=== PATIENT | male | born 1965 | race Caucasian/White ===

== ENCOUNTER 2021-03-04 10:17 | Emergency (ER) | payer BC, SELFPAY ==
--- NOTE | ~2021-03-04 | XR_ITS ---
EXAMINATION: XR hand RT 2V INDICATION: Right hand pain TECHNIQUE: Two views of the right hand are obtained. COMPARISON: None available FINDINGS: Bone alignment is normal. There is no fracture. There is soft tissue swelling of the second finger. No radiopaque foreign body is identified. 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 IMPRESSION: 1. Soft tissue swelling of the second finger without acute osseous abnormality or radiopaque foreign body identified. Reviewed, dictated and finalized at location A.
[2021-03-04 10:29] VITALS: BP 138/73; PULSE 63; RESP 16; TEMP 36.2; O2SAT 98
--- NOTE | 2021-03-04 11:15 | ED.SKABFB ---
HPI - Skin/Abscess/Foreign Bdy General Chief complaint: Skin/Abscess/Foreign Body Stated complaint: Splinter in right Hand Source: patient, RN notes reviewed and old records reviewed Mode of arrival: ambulatory Limitations: no limitations History of Present Illness HPI narrative: 55 year old male who presents to [facility] care with complaints of splinter in his right hand myrick center aspect towards thumb region since evening.Patient states that he was cleaning out stalls of horse barn and piece of wood went into his right hand and he pulled some of it out but thinks that there is still something in his hand. He states that his right myrick hand towards his thumb is painful and swollen and he states some purulent drainage came out of it today. He reports that his tetanus shot is up to date. MD complaint: other (splinter right myrick aspect ) Onset (ago): day(s) (3) Related Data Allergies Allergy/AdvReac Type Severity Reaction Status Date / Time No Known Allergies Allergy Unverified 09/13/17 10:10 Review of Systems Review of Systems: CONSTITUTIONAL: Denies fever, chills, or sweats. EYES: Denies visual changes, redness, or discharge. ENT: Denies rhinorrhea, congestion, sore throat, or otalgia. CARDIOVASCULAR: Denies chest pain, palpitations, or edema. RESPIRATORY: Denies cough or dyspnea. GASTROINTESTINAL: Denies abdominal pain, nausea, vomiting, or diarrhea. GENITOURINARY: Denies dysuria or hematuria. SKIN: Pain to myrick aspect of right hand towards thumb with some redness and swelling. MUSCULOSKELETAL: Denies back pain, joint pain, or myalgia. NEUROLOGIC: Denies headache, numbness, or weakness. PSYCHIATRIC: Denies anxiety or depression. All systems reviewed & are unremarkable except as noted in HPI and below PMFSH Past Medical History Medical History (Updated 03/05/21 @ 00:03 by Rambo Smith) No pertinent past medical history Surgical History Surgical History (Updated 03/04/21 @ 11:35 by Doimnique Jang NP) No pertinent past surgical history Family History Family History (Updated 03/05/21 @ 20:53 by Dominique Jang NP) Other No significant family history Social History Social History (Updated 03/05/21 @ 21:15 by Dominique L. Laine, SET UP INSPECTOR) Smoking packs per day: 1 Smoking cigarettes per day: 20.0 Smoking status: Current every day smoker Tobacco type: cigarettes Alcohol intake: current Alcohol use details: social Substance use: never Living arrangements: with family Gender identity (if verbalized by the patient): Male Comments At time of signature, agree with nursing past medical, surgical, social and family history. There is no relevant family history pertinent to the presenting complaint Exam Narrative: GENERAL: Well-appearing, well-nourished, and in no acute distress. HEAD: Normocephalic, atraumatic. EYES: PERRLA and EOMI. ENT: Nares clear, no rhinorrhea or epistaxis. Mucous membranes moist.ears normal and throat normal NECK: Supple. no lymphadenopathy CHEST: Clear to auscultation. No respiratory distress.SAO2 98% on room air HEART: Regular rate and rhythm. No murmur heard. Normal peripheral pulses. ABDOMEN: Soft, nontender, nondistended, normal active bowel sounds. EXTREMITIES: Normal range of motion. No edema except to myrick aspect of right hand. SKIN: Warm, dry, no rash.Red swollen tissue area to the myrick aspect of patient's right hand towards thumb which is painful to palpation, small red puncture noted with no drainage present at this time but patient reports that he noted some purulent drainage earlier today, he feels like a piece of splinter remains in hand. NEURO: No focal deficits. Alert and oriented x3. Course Vital Signs Vital signs: Vital Signs Temperature 36.2 C L 03/04/21 10:29 Pulse Rate 63 03/04/21 10:29 Respiratory Rate 16 03/04/21 10:29 Blood Pressure 138/73 03/04/21 10:29 Pulse Oximetry 98 03/04/21 10:29 Temperature 36
--- NOTE | 2021-03-04 11:21 | PC.NURSE ---
suture set up at bedside 1100
== END 2021-03-04 12:10 | disposition home or self-care (01) ==
PROVIDERS: Emergency Provider Registered Nurse; PCP Internal Medicine
DX: S61.441A Puncture wound with foreign body of right hand, initial encounter (principal); W45.8XXA Other foreign body or object entering through skin, initial encounter; F17.210 Nicotine dependence, cigarettes, uncomplicated
CPT/HCPCS: 10120; 73120; 99213; G0463

== ENCOUNTER 2021-11-21 21:39 | Emergency (ER) | payer BC, SELFPAY ==
--- NOTE | ~2021-11-21 | XR_ITS ---
EXAMINATION: XR chest 1V portable Exam Date/Time: 11/21/2021 22:00 CDT CLINICAL HISTORY: stroke protocol Comparison: None available. RESULT: Lines, tubes, and devices: None. Lungs and pleura: Low lung volumes. Diffuse reticular pattern. Cardiomediastinal silhouette: Stable cardiomediastinal silhouette. Other: No acute osseous or upper abdominal finding. IMPRESSION: Bronchovascular crowding vs mild interstitial edema. Reviewed, dictated and finalized at location K.
--- NOTE | ~2021-11-21 | CT_ITS ---
EXAMINATION: CTA BRAIN/CAROTID DATE: 11/21/2021 23:45 INDICATION: Headache. Left leg weakness. TECHNIQUE: Computed tomographic angiography (CTA) of the head and neck was performed with 100 mL Omni paque-350 intravenous contrast. Multiplanar reconstructions and maximum intensity projection 3D-recon structions of the carotid arteries and of the intracranial arteries were created by the technologist on a separate workstation. Automated exposure control and iterative reconstruction technique were em ployed.The dose-length product was 1311.43 mGy-cm. COMPARISON: Noncontrast head CT dated 11/21/2021 FINDINGS: Carotid arteries: Normal caliber aortic arch with no dissection. There is 10% stenosis of the right carotid bulb relati ve to normal distal artery lumen diameter (NASCET criteria). There is 0% stenosis of the left carotid bulb relative to normal distal artery lumen diameter. Mild dependent atelectasis in the visualized b ilateral mid to upper lungs. Atherosclerotic coronary artery calcification. No pathologically enlarge d cervical or upper thoracic lymphadenopathy. Mild to moderate cervical and upper thoracic spondylosi s. Intracranial arteries There is scattered atherosclerotic plaque with <50% stenosis along the bilateral intracranial interna l carotid . There is no hemodynamically significant stenosis in the vertebral, basilar and internal c arotid arteries. Vertebral arteries are codominant. There are no aneurysms identified. Both A1 and P 1 segments are patent. Cerebral arterial arborization appears symmetric. No abnormally enhancing bra in lesions. IMPRESSION: 1. 10% stenosis of the right carotid bulb relative to normal distal artery lumen diameter (NASCET cri teria). 2. 0% stenosis of the left carotid bulb relative to normal distal artery lumen diameter. 3. Multifocal scattered atherosclerotic plaque along the bilateral intracranial internal carotid da tatum with <50% stenosis. Otherwise unremarkable cerebral CT angiogram. Reviewed, dictated and finalized at location A. IMPRESSION: 1. 10% stenosis of the right carotid bulb relative to normal distal artery lume n diameter (NASCET criteria). 2. 0% stenosis of the left carotid bulb relative to normal distal artery lumen diameter. 3. Multifocal scattered atherosclerotic plaque along the bilateral intracranial internal carotid arteries with <50% stenosis. Otherwise unremarkable cerebral CT angiogram.
--- NOTE | ~2021-11-21 | CT_ITS ---
EXAMINATION: CT brain wo con DATE: 11/21/2021 22:04 INDICATION: headache, AMS TECHNIQUE: Computed tomography (CT) of the head was performed without intravenous contrast. The mA wa s adjusted according to patient size. Iterative reconstruction technique was employed. The dose-lengt h product was 605.33 mGy-cm. COMPARISON: None FINDINGS: No acute intracranial hemorrhage or extra-axial fluid collection. No hydrocephalus, mass, or herniation. No acute ischemic infarct. Unremarkable dural venous sinus attenuation. No acute osseous abnormality. Mucosal thickening and air-fluid level in the left maxillary sinus, otherwise the aerated spaces are clear. IMPRESSION: No acute intracranial process. Reviewed, dictated and finalized at location K.
--- NOTE | 2021-11-21 21:47 | ED.HA ---
HPI - Headache General Chief Complaint: Headache Stated Complaint: Headache Time Seen by Provider: 11/21/21 21:47 Source: patient and family Mode of arrival: ambulatory Limitations: no limitations History of Present Illness HPI Narrative: The patient is a 56-year-old male presenting to the emergency department for evaluation of headache pain. Patient reports that he was riding horses this evening had been feeling generally unwell. Patient states that he developed severe headache while riding, making him feel very fatigued. Headache began in the back of his head radiating to the front. He reports generalized weakness without focal weakness or numbness. Patient continues to state he feels very fatigued. He denies vision changes, nausea or vomiting. He denies chest pain, shortness of breath, abdominal pain. He denies any sensitivity to light. Patient states he has a history of this 2 weeks ago, states that he had a left-sided headache which is abnormal for him. Patient reported a tingling sensation on the top of his head. Patient states his symptoms resolved thus he did not seek care at the hospital. Per patient's , his sister has a history of brain aneurysm. Otherwise, this patient has no known medical problems. Related Data Allergies Allergy/AdvReac Type Severity Reaction Status Date / Time No Known Allergies Allergy Unverified 09/13/17 10:10 Review of Systems Review of Systems: CONSTITUTIONAL: Denies fever, chills, or sweats. EYES: Denies visual changes, redness, or discharge. ENT: Denies rhinorrhea, congestion, sore throat, or otalgia. CARDIOVASCULAR: Denies chest pain, palpitations, or edema. RESPIRATORY: Denies cough or dyspnea. GASTROINTESTINAL: Denies abdominal pain, nausea, vomiting, or diarrhea. GENITOURINARY: Denies dysuria or hematuria. SKIN: Denies rash or itching. MUSCULOSKELETAL: Denies back pain, joint pain, or myalgia. NEUROLOGIC: Reports headache and generalized weakness PMFSH Past Medical History Medical History No pertinent past medical history Surgical History Surgical History No pertinent past surgical history Family History Family History Other No significant family history Social History Social History Smoking packs per day: 1 Smoking cigarettes per day: 20.0 Smoking status: Current every day smoker Tobacco type: cigarettes Alcohol intake: current Alcohol use details: social Substance use: never Gender identity (if verbalized by the patient): Male Exam Narrative: GENERAL: Awake, alert, conversant, fatigued appearing HEAD: Normocephalic, atraumatic. EYES: 2+ PERRLA and EOMI. no gaze palsy. ENT: Nares clear, no rhinorrhea or epistaxis. Mucous membranes moist. NECK: Supple. CHEST: No respiratory distress, breathing even and non labored HEART: Regular rate, sinus rhythm ABDOMEN:Non distended, non tender EXTREMITIES: Normal range of motion. No edema. SKIN: Warm, dry, no rash. NEURO:No focal deficits. Alert and oriented x3. Finger to nose intact bilaterally. EOMs intact without nystagmus. No facial droop/asymmetry noted bilaterally. Grimace intact. Intact sensation in face. Hearing intact bilaterally. Shoulder shrug intact. Strength 5/5 bilateral upper extremities. Strength 5/5 bilateral lower extremities. No drift. Able to name 3 objects and recall normally. Reflexes 2+ patellar. Cannot complete [id number]. Ambulatory exam deferred. Course Vital Signs Vital signs: Vital Signs Temperature 37.1 C 11/21/21 22:00 Pulse Rate 103 H 11/21/21 22:00 Respiratory Rate 16 11/21/21 22:00 Blood Pressure 153/90 H 11/21/21 22:00 Pulse Oximetry 97 11/21/21 22:00 Temperature 37.1 C 11/21/21 22:00 Pulse Rate 103 H 11/21/21 22:00 Respi
[2021-11-21 21:54] LABS: Glucose Point of Care 117 mg/dl (65-105)
--- NOTE | 2021-11-21 21:55 | ECG_ITS ---
Rate 101 ME 166 QRSd 112 QT 317 QTc 413 --[place]-- P 32 QRS 15 T 36 SINUS TACHYCARDIA INTRAVENTRICULAR CONDUCTION DELAY MINIMAL Q WAVES- INFERIOR LEADS BORDERLINE ECG Electronically Signed On 11-22-2021 6:33:31 CDT by George Andersen D.O. NO PREVIOUS ECG AVAILABLE FOR COMPARISON MTDD
[2021-11-21 22:00] VITALS: BP 153/90; PULSE 103; RESP 16; TEMP 37.1; O2SAT 97
[2021-11-21 22:15] LABS: Basophils Absolute Auto 0.1 K/mm3 (0.0-0.1); Basophils Percent Auto 0.5 % (0.2-1.2); Eosinophils Absolute Auto 0.1 K/mm3 (0-0.3); Eosinophils Percent Auto 0.9 % (0-4.4); Hematocrit 47.6 % (42.0-52.0); Immature Granulocyte Absolute 0.05 K/mm3 (0.00-0.031); Immature Granulocyte Percent A 0.4 % (0-0.5); Lymphocytes Absolute Auto 0.69 K/mm3 (0.9-3.2); Lymphocytes Percent Auto 5.7 % (18.3-44.2); Mean Corpuscular HGB Conc 33.6 g/dl (32-36); Mean Corpuscular Hemoglobin 31.9 pg (26-34); Mean Platelet Volume 10.1 fl (7.4-10.4); Monocytes Absolute Auto 0.9 K/mm3 (0.1-0.6); Monocytes Percent Auto 7.4 % (2.6-8.5); Neutrophils Absolute Auto 10.2 K/mm3 (1.3-6.7); Neutrophils Percent Auto 85.1 % (45.5-73.1); Platelet Count Result 226 k/mm3 (150-375); Red Blood Count 5.01 M/mm3 (4.6-6.20); Red Cell Distribution Width 13.6 % (11.5-14.5)
[2021-11-21 22:24] LABS: Alanine Aminotransferase 38 U/L (4-50); Alkaline Phosphatase 79 U/L (38-126); Anion Gap 10 mmol/L (8-16); Aspartate Amino Transferase 35 U/L (17-59); Bilirubin,Total 0.4 mg/dL (0.2-1.3); Blood Urea Nitrogen 15 mg/dL (9-20); Calcium 9.2 mg/dL (8.4-10.2); Carbon Dioxide 22 mmol/L (22-30); Chloride 103 mmol/L (98-107); Estimated Glomerular Filt Rate > 60; Glucose 103 mg/dL (65-110); Potassium 3.9 mmol/L (3.4-5.0); Prothrombin Time 12.8 Seconds (11.1-14.7); Sodium 135 mmol/L (137-145)
[2021-11-21 22:25] LABS: Partial Thromboplastin Time 37.2 SECONDS (22.3-36.8)
[2021-11-21 22:36] LABS: Troponin I < 0.012 ng/mL (0.000-0.034)
[2021-11-21 23:00] VITALS: BP 154/81; PULSE 97; RESP 16; O2SAT 97
[2021-11-21] MEDS: SODIUM CHLORIDE 0.9% IV 1,000 ML 999 ML IV CONT ×2 (23:00→23:12)
[2021-11-21] MEDS: METOCLOPRAMIDE HCL INJ 10 MG/2 ML VIAL 5 MG IV PUSH (23:00)
[2021-11-21] MEDS: MORPHINE SULFATE (*CRX) 4 MG/ML INJ IV PUSH (23:08)
[2021-11-22] VITALS: BP 149/74; PULSE 96; RESP 16; O2SAT 96
[2021-11-22 01:00] VITALS: BP 140/72; PULSE 97; RESP 20; O2SAT 95
[2021-11-22 01:30] VITALS: BP 136/79; PULSE 94; RESP 16; O2SAT 97
== END 2021-11-22 01:30 | disposition home or self-care (01) ==
PROVIDERS: Emergency Provider Emergency Medicine; PCP Internal Medicine
DX: G43.909 Migraine, unspecified, not intractable, without status migrainosus (principal); F17.210 Nicotine dependence, cigarettes, uncomplicated; R00.0 Tachycardia, unspecified; I45.9 Conduction disorder, unspecified
CPT/HCPCS: 36415; 70450; 70496; 70498; 71045; 80053; 82948; 84484; 85025; 85610; 85730; 93005; 96361; 96365; 96375; 99284; J0131; J1100; J2270; J2765; J7030; Q9967

== ENCOUNTER → 2022-03-08 08:40 | Outpatient (CLI) | payer BC, SELFPAY ==
--- NOTE | ~2022-03-08 | CT_ITS ---
EXAMINATION: CT lung screening DATE: 03/08/2022 09:00 INDICATION: TECHNIQUE: Computed tomography (CT) of the chest was performed without intravenous contrast. The dose -length product was 103.63 mGy-cm. Automated exposure control and iterative reconstruction technique were employed. COMPARISON: None FINDINGS: Heart size normal. No significant pleural or pericardial effusion. There is calcified granu [place] at of the right lower lobe. No thoracic lymphadenopathy. There is a 5 mm fissural nodule on the left, image 60. Mild emphysema. Mild thoracic spondylosis. No pneumothorax. No endobronchial lesions. No focal airspace consolidation. IMPRESSION: 1. Lung-RADS category 2: Benign appearance or behavior. Continue annual screening with noncontrast lo w-dose chest CT in 12 months. Reviewed, dictated and finalized at location B. IMPRESSION: 1. Lung-RADS category 2: Benign appearance or behavior. Continue annual screeni ng with noncontrast low-dose chest CT in 12 months.
== END ==
PROVIDERS: PCP Internal Medicine; Visit Provider Internal Medicine
DX: Z12.2 Encounter for screening for malignant neoplasm of respiratory organs (principal); Z87.891 Personal history of nicotine dependence
CPT/HCPCS: 71271

== ENCOUNTER 2022-07-20 18:26 | Emergency (ER) | payer BC, SELFPAY ==
--- NOTE | ~2022-07-20 | XR_ITS ---
EXAM: XR finger 3rd RT min 2V DATE: 07/20/2022 18:53 HISTORY: crush injury with laceration. SMASHED IT IN A CATTLE GATE. . COMPARISON: 03/04/2021. FINDINGS: Normal mineralization. No fracture or dislocation. No lytic or blastic lesion. Scattered d egenerative changes. No erosion or periosteal change. Soft tissues within normal limits. IMPRESSION: No acute osseous finding in the right third digit. Reviewed, dictated and finalized at location K. R WINDER
[2022-07-20 18:41] VITALS: BP 135/82; PULSE 85; RESP 16; TEMP 36.8; O2SAT 99
[2022-07-20] MEDS: TETANUS,DIPHTHERIA,AC PERTUSSIS ADULT (0.5 ML) BOOSTRIX IM (18:47)
[2022-07-20] MEDS: HYDROcodone/acetaminophen (*CRX) 5-325 MG TABLET 1 TAB PO (19:10)
--- NOTE | 2022-07-20 19:48 | ED.WOUNDLAC ---
HPI - Wound/Laceration General Chief Complaint: Wound/Laceration Stated Complaint: finger shut in cattle gate Time Seen by Provider: 07/20/22 18:50 Source: patient Mode of arrival: ambulatory Limitations: no limitations History of Present Illness HPI narrative: This is a 57-year-old male that presents to the emergency department for right third finger injury sustained just prior to arrival. Reports he accidentally got it shot into a gate. Reports laceration, bleeding and pain. He is not up-to-date on tetanus. Denies decreased range of motion or numbness. Related Data Allergies Allergy/AdvReac Type Severity Reaction Status Date / Time No Known Allergies Allergy Unverified 09/13/17 10:10 Review of Systems Review of Systems: CONSTITUTIONAL: Denies fever SKIN: Reports laceration MUSCULOSKELETAL: Reports joint pain, and myalgia. NEUROLOGIC: Denies numbness All systems reviewed & are unremarkable except as noted in HPI and below PMFSH Past Medical History Medical History No pertinent past medical history Surgical History Surgical History No pertinent past surgical history Family History Family History Other No significant family history Social History Social History Smoking packs per day: 1 Smoking cigarettes per day: 20.0 Smoking status: Current every day smoker Tobacco type: cigarettes Alcohol intake: current Alcohol use details: social Substance use: never Gender identity (if verbalized by the patient): Male Exam Narrative: GENERAL: Well-appearing, well-nourished, and in no acute distress. HEAD: Normocephalic, atraumatic. EYES: EOMI. EXTREMITIES: Normal range of motion. Right third finger with 2cm linear laceration into subcutaneous tissue at the distal phalanx with involvement of a portion of the mid-distal nail. Normal sensation SKIN: Warm, dry, no rash. NEURO: No focal deficits. Alert and oriented x3. PSYCH: Normal mood and affect Course Vital Signs Vital signs: Vital Signs Temperature 98.2 F 07/20/22 18:41 Pulse Rate 85 07/20/22 18:41 Respiratory Rate 16 07/20/22 18:41 Blood Pressure 135/82 07/20/22 18:41 Pulse Oximetry 99 07/20/22 18:41 Temperature 98.2 F 07/20/22 18:41 Pulse Rate 85 07/20/22 18:41 Respiratory Rate 16 07/20/22 18:41 Blood Pressure 135/82 07/20/22 18:41 Pulse Oximetry 99 07/20/22 18:41 Procedures Laceration Laceration 1: Date: 07/20/22 Time: 21:51 Site: hand Side (If applicable): right Size (cm): 2 Description: linear Depth: simple, single layer Local Anesthetic: lidocaine 1% Amount of anesthesia used (mL): 4 Pre-repair: wound explored and irrigated extensively ====== Skin Level ====== Skin layer closed with: nylon and other (chromic gut) Size (cm): 4-0 Number of sutures: 6 Technique: simple, interrupted ====== Subcutaneous Layer ====== ====== Muscle Layer ====== ====== Tendon Layer ====== MDM - Wound/Laceration MDM Narrative Medical decision making narrative: Patient presents to the ER for laceration to the right third finger sustained just prior to arrival. Patient is neurovascularly intact. He did have a deep laceration to the tip of the finger that involved a portion of the nail. This was repaired and he was updated on tetanus. His wound was thoroughly irrigated. Right third finger x-ray without acute osseous abnormalities. Patient will be started on prophylactic antibiotics he is to follow-up with his primary care provider. He was given warnings to return to the ER. Imaging Data Radiologist's impression: ITS Impressions Finger X-Ray 07/20/22 18:54 IMPRESSION: No
== END 2022-07-20 21:55 | disposition home or self-care (01) ==
PROVIDERS: Emergency Provider Physician Assistant; PCP Internal Medicine
DX: S61.212A Laceration without foreign body of right middle finger without damage to nail, initial encounter (principal); W23.0XXA Caught, crushed, jammed, or pinched between moving objects, initial encounter; Z23 Encounter for immunization
CPT/HCPCS: 12001; 73140; 90471; 90715; 96365; 99284; A9270; J0690

== ENCOUNTER 2024-03-01 08:37 | Outpatient (CLI) | payer OTHER, SELFPAY ==
--- NOTE | ~2024-03-01 | CT_ITS ---
EXAMINATION:CT lung screening DATE: 03/01/2024 08:48 INDICATION: Personal history of nicotine dependence. Current smoker with 20 pack year history. TECHNIQUE: Computed tomography (CT) of the chest was performed without intravenous contrast. Automate d exposure control and iterative reconstruction technique were employed. The dose-length product (DLP ) was 94.37 mGy-cm. COMPARISON: Chest CT 03/08/2022 FINDINGS: The lungs demonstrate mild atelectasis. A calcified right lung nodule and calcified mediast inal lymph nodes are consistent with old granulomatous disease. There is a 5 mm nodule left major fis sure without change. No pleural effusion. The heart size is normal. There are coronary artery calcifi cations. No pericardial effusion. There is severe thoracic spondylosis. IMPRESSION: 1. Lung-RADS category 2: Benign appearance or behavior. Continue annual screening with noncontrast lo w-dose chest CT in 12 months. Reviewed, dictated and finalized at location A. IMPRESSION: 1. Lung-RADS category 2: Benign appearance or behavior. Continue annual screeni ng with noncontrast low-dose chest CT in 12 months.
== END 2024-03-01 08:38 ==
LOC: MICIMG 08:38
PROVIDERS: PCP Internal Medicine; Visit Provider Internal Medicine
DX: Z12.2 Encounter for screening for malignant neoplasm of respiratory organs (principal); Z87.891 Personal history of nicotine dependence
CPT/HCPCS: 71271

== ENCOUNTER 2024-04-02 17:01 | Emergency (ER) | payer OTHER, SELFPAY ==
[2024-04-02 17:13] VITALS: BP 136/71; PULSE 70; RESP 18; TEMP 37.4; O2SAT 97
--- NOTE | 2024-04-02 18:07 | ED.URI ---
HPI - URI/Sore Throat General Chief Complaint: Upper Respiratory Infection Stated Complaint: Cough/Bodyaches Time Seen by Provider: 04/02/24 18:10 Source: patient, RN notes reviewed and old records reviewed Mode of arrival: ambulatory Limitations: no limitations History of Present Illness HPI Narrative: 59-year-old male presents to the [facility] with complaints cough and body aches since Friday, 4 days. Two days ago started taking DayQuil NyQuil Patient denies fevers. Patient is a smoker Related Data Allergies Allergy/AdvReac Type Severity Reaction Status Date / Time No Known Allergies Allergy Verified 04/02/24 17:53 Review of Systems Review of Systems: All systems reviewed & are unremarkable except as noted in HPI and below Constitutional: Constitutional: Reports no additional constitutional complaints Eyes: Eyes: Reports no additional eye complaints ENT: Reports as per HPI Cardiovascular: Cardiovascular: Reports no additional cardiovascular complaints, Denies chest pain and Denies dyspnea Respiratory: Respiratory: Reports no additional respiratory complaints, Denies chest congestion, Denies cough and Denies dyspnea Gastrointestinal: Gastrointestinal: Reports no additional gastrointestinal complaints, Denies abdominal pain, Denies nausea and Denies vomiting Musculoskeletal: Musculoskeletal: Reports no additional musculoskeletal complaints Integumentary/Breasts: Skin/Breast: Reports system reviewed and no additional complaints, except as docu Neurologic: Reports system reviewed and no additional complaints, except as documented Psychiatric: Psychiatric: Reports no additional psychiatric complaints Allergic/Immunologic: Allergic/Immunologic: Reports no additional allergic/immunologic complaints [facility] Past Medical History Medical History No pertinent past medical history Surgical History Surgical History No pertinent past surgical history Family History Family History Other No significant family history Social History Social History Smoking packs per day: 1 Smoking cigarettes per day: 20.0 Smoking status: Current every day smoker Tobacco type: cigarettes Alcohol intake: current Alcohol use details: social Substance use: never Living arrangements: with family Gender identity (if verbalized by the patient): Male Comments At the time of my signature, I reviewed and agree with the nursing past medical, surgical, social, and family history. There is no relevant family history pertinent to the patient complaint. Exam Const: General: cooperative, healthy appearing, comfortable, no acute distress, well developed, alert and well nourished Nutritional Appearance: well nourished Orientation/consciousness: patient oriented x3 Limitations: no limitations HENMT: Head: normal to inspection Ears: hearing grossly normal bilaterally, external ears normal, TM's normal bilaterally, EAC's normal, mastoids normal and no periauricular adenopathy Face/Nose/Sinus: Normal external nose present, Normal nares present, Normal nasal mucous membranes and turbinates present, Nasal discharge present clear bilateral, normal facial exam and face symmetric Face and sinus: normal facial exam and face symmetric Mouth: Yes Normal oral and palatal mucosa present, Yes lip normal and Yes tongue normal Throat: uvula midline, postnasal drainage and no uvular edema Eyes: General: appearance normal, both eyes and all related structures Alignment and Position: alignment normal Periorbital: periorbital findings normal Neck: Neck: normal visual inspection, full ROM, no lymphadenopathy and no meningeal signs Chest: Chest palpation & inspection: normal inspection of the chest Resp: Effort & Inspection: norm
[2024-04-02 18:47] LABS: EDCOVIDSCREEN Negative (Negative); EDINFLUASCREEN Negative (Negative); EDINFLUBSCREEN Negative (Negative)
== END 2024-04-02 18:21 | disposition home or self-care (01) ==
PROVIDERS: Emergency Provider Nurse Practitioner; PCP Internal Medicine
DX: R09.82 Postnasal drip (principal); J06.9 Acute upper respiratory infection, unspecified; Z20.822 Contact with and (suspected) exposure to COVID-19; F17.210 Nicotine dependence, cigarettes, uncomplicated
CPT/HCPCS: 87635; 87804; 99213; G0463